=== PATIENT | female | born 1965 | race Caucasian/White ===

== ENCOUNTER 2016-11-22 13:49 | Emergency (ER) | payer OTHER ==
[~2016-11-22] VITALS: Ht 165.1 cm; Wt 74.8 kg
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
[~2016-11-22 13:49] MED LIST: KEFLEX500 MG PO; NO MEDICATIONS; ROBAXIN500 MG PO; VOLTAREN75 MG PO; ZITHROMAX PO
== END 2016-11-22 16:10 | disposition home or self-care (01) ==
LOC: CED 13:49 → CFTX 13:49
DX: S20.229A Contusion of unspecified back wall of thorax, initial encounter (principal); S70.01XA Contusion of right hip, initial encounter; D64.9 Anemia, unspecified; I10 Essential (primary) hypertension; Y08.89XA Assault by other specified means, initial encounter; Y93.89 Activity, other specified; Y92.69 Other specified industrial and construction area as the place of occurrence of the external cause; Y99.0 Civilian activity done for income or pay
CPT/HCPCS: 72072; 73000; 73502; 99283